=== PATIENT | female | born 1985 | race African-American/Black ===

== ENCOUNTER 2018-03-28 11:23 | Observation (INO) ==
[2018-03-28] MEDS ORDERED: ASPIRIN 325 MG TABLET PO STA (12:27)
[2018-03-28] MEDS ORDERED: NITROGLYCERIN 2% OINT 1 INCH/GM PACK TOP STA (12:27)
[2018-03-28] MEDS ORDERED: ONDANSETRON 4 MG/2 ML VIAL IV PRN (12:27)
[2018-03-28 12:48] LABS: Basophils % 0.4 % (0.0-0.8); Eosinophils % 0.6 % (0.00-10.9); Hematocrit 34.1 VOL% (35.7-47.0); Hemoglobin 11.4 GM/DL (12.0-16.0); Immature Granulocytes % 0.2 %; Immature Granulocytes Absolute 0.01 #; Lymphocytes # 1.8 10*3/uL (1.4-4.0); Lymphocytes % 32.9 % (21.3-54.2); Mean Corpuscular HGB Conc 33.4 GM/DL (32-36); Mean Corpuscular Hemoglobin 28 PG (27-34); Mean Corpuscular Volume 84.2 FL (87-102); Mean Platelet Volume 9.8 FL (9.6-12.0); Monocytes # 0.3 10*3/uL (0.11-0.8); Monocytes % 6.2 % (1.7-12.7); Neutrophils # 3.2 10*3/uL (1.4-7.4); Neutrophils % 59.7 % (38.7-73.9); Platelet Count 325 T/CUMM (130-400); Red Blood Count 4.05 MC/CUMM (3.8-5.5); Red Cell Distribution Width 12.3 % (9.3-17.3); White Blood Count 5.3 T/CUMM (4-12)
[2018-03-28 13:13] LABS: Albumin 3.6 G/DL (3.4-5.0); Bilirubin,Total 0.4 MG/DL (0.2-1.0); Calcium 8.8 MG/DL (8.5-10.1); Osmolality,Calculated 281.4 MOS/KG (273-304); Potassium 3.9 MMOL/L (3.5-5.1); Total Protein 7.5 G/DL (6.4-8.3)
[2018-03-28] MEDS ORDERED: DEXTROSE 50% 25 GM/50 ML VIAL IV PRN (16:51)
[2018-03-28] MEDS ORDERED: ALUM/MAG/SIMETH/LIDO VISC 1:1 30 ML BOTTLE PO PRN (16:51)
[2018-03-28] MEDS ORDERED: GLUCAGON 1 MG VIAL IM PRN (16:51)
[2018-03-28] MEDS: SODIUM CHLORIDE 0.9% 1,000 ML IV SCH (17:31)
[2018-03-28] MEDS ORDERED: CYCLOBENZAPRINE 10 MG TABLET PO PRN (17:36)
[2018-03-28] MEDS ORDERED: ENOXAPARIN 40 MG/0.4 ML SYRINGE SUBCUT SCH (18:00)
[2018-03-28 18:31] LABS: Apearance,Urine CLEAR (Clear); Bilirubin,Urine Negative (Negative); Blood, Urine Negative (Negative); Glucose,Urine (UA) >=500 mg/dL (Negative); Ketones,Urine 20 mg/dL (Negative); Mucus,Urine Occasional /LPF (Occasional); Nitrite,Urine Negative (Negative); Protein,Urine Negative; RBC,Urine 1 /HPF (0-4); Squamous Epithelial Cell,Urine Occasional /HPF (0-10); Urine Color Straw (Yellow); Urine Urobilinogen < 2.0 EU/DL (0.2-1.0); WBC,Urine 2 /HPF (0-6)
[2018-03-28 18:37] LABS: Barbiturates Screen,Urine Negative (Negative); Benzodiazepines Screen,Urine Negative (Negative); Cannabinoid Screen,Urine Negative (Negative); Opiate Screen,Urine Negative (Negative); Phencyclidine Screen,Urine Negative (Negative)
[2018-03-28] MEDS: OXYBUTYNIN 5 MG TABLET PO SCH (20:43)
[2018-03-28] MEDS: INSULIN LISPRO 100 UNIT/ML SUBCUT SCH (20:43)
[2018-03-28] MEDS: ONDANSETRON 4 MG/2 ML VIAL IV PRN (20:44)
[2018-03-28] MEDS ORDERED: traZODone 50 MG TABLET PO SCH (21:00)
[2018-03-28] MEDS: MORPHINE 4 MG/1 ML VIAL IV PRN (21:04)
[2018-03-29] MEDS: MORPHINE 4 MG/1 ML VIAL IV PRN ×2 (02:18→08:14)
[2018-03-29] MEDS: SODIUM CHLORIDE 0.9% 1,000 ML IV SCH ×2 (02:18→10:42)
[2018-03-29 05:24] LABS: Basophils % 0.5 % (0.0-0.8); Eosinophils # 0.1 10*3/uL (0.0-0.87); Eosinophils % 2.8 % (0.00-10.9); Hematocrit 29.5 VOL% (35.7-47.0); Hemoglobin 9.7 GM/DL (12.0-16.0); Immature Granulocytes % 0.2 %; Immature Granulocytes Absolute 0.01 #; Lymphocytes # 2.1 10*3/uL (1.4-4.0); Lymphocytes % 47.8 % (21.3-54.2); Mean Corpuscular HGB Conc 32.9 GM/DL (32-36); Mean Corpuscular Hemoglobin 28 PG (27-34); Mean Corpuscular Volume 85.5 FL (87-102); Mean Platelet Volume 9.8 FL (9.6-12.0); Monocytes # 0.4 10*3/uL (0.11-0.8); Monocytes % 8.7 % (1.7-12.7); Neutrophils # 1.7 10*3/uL (1.4-7.4); Platelet Count 257 T/CUMM (130-400); Red Blood Count 3.45 MC/CUMM (3.8-5.5); Red Cell Distribution Width 12.5 % (9.3-17.3); White Blood Count 4.4 T/CUMM (4-12)
[2018-03-29 06:00] LABS: Calcium 7.9 MG/DL (8.5-10.1); Potassium 4.1 MMOL/L (3.5-5.1); Risk Ratio 2.12; Thyroid Stimulating Hormone 2.09 uIU/ml (0.358-3.74); VLDL CHOLESTEROL 10.8 MG/DL
[2018-03-29] MEDS: INSULIN LISPRO 100 UNIT/ML SUBCUT SCH ×2 (08:15→12:46)
[2018-03-29] MEDS: OXYBUTYNIN 5 MG TABLET PO SCH (08:16)
[2018-03-29] MEDS ORDERED: PANTOPRAZOLE 40 MG TABLET PO SCH (09:00)
[2018-03-29] MEDS ORDERED: SERTRALINE 50 MG TABLET PO SCH (09:00)
[2018-03-29] MEDS ORDERED: MAGNESIUM SULF RIDER 2 GM in PREMIX 1 EACH IV PRN (09:34)
[2018-03-29] MEDS ORDERED: MAGNESIUM SULF RIDER 4 GM in PREMIX 1 EACH IV PRN (09:34)
[2018-03-29] MEDS ORDERED: INSULIN ASPART PROTAMINE/ASPART 70/30 100 UNIT/ML SUBCUT SCH ×2 (10:00→18:00)
[2018-03-29] MEDS: ONDANSETRON 4 MG/2 ML VIAL IV PRN (12:50)
[2018-03-29 14:09] VITALS: BP 94/74
== END 2018-03-29 15:21 | disposition home or self-care (01) ==
LOC: N.ED 11:23 → N.EDINP 11:23 → N.5E 15:02
PROVIDERS: ADMIT Internal Medicine; ATTEND Internal Medicine

== ENCOUNTER 2020-04-13 05:35 | Observation (INO) ==
[2020-04-13 06:36] LABS: Basophils % 0.4 % (0.0-0.8); Eosinophils # 0.1 10*3/uL (0.0-0.87); Eosinophils % 1.5 % (0.00-10.9); Hematocrit 33.9 VOL% (35.7-47.0); Hemoglobin 11.2 GM/DL (12.0-16.0); Immature Granulocytes % 0.6 %; Immature Granulocytes Absolute 0.04 #; Lymphocytes % 14.4 % (21.3-54.2); Mean Corpuscular Volume 82.3 FL (87-102); Mean Platelet Volume 9.9 FL (9.6-12.0); Monocytes % 5.1 % (1.7-12.7); Platelet Count 305 T/CUMM (130-400); Red Blood Count 4.12 MC/CUMM (3.8-5.5); White Blood Count 7.2 T/CUMM (4-12)
[2020-04-13 06:52] LABS: Albumin 3.6 G/DL (3.4-5.0); Bilirubin,Total 0.6 MG/DL (0.2-1.0); Calcium 9.2 MG/DL (8.5-10.1); Osmolality,Calculated 294.8 MOS/KG (273-304); Total Protein 6.9 G/DL (6.4-8.3)
[2020-04-13] MEDS ORDERED: INSULIN REGULAR 100 UNIT/ML IV STA (06:55)
[2020-04-13] MEDS ORDERED: SODIUM CHLORIDE 0.9% 1,000 ML IV STA (06:56)
[2020-04-13 08:51] LABS: ABG HCO3 21.1 MMOL/L (20-26); ABG Oxygen Saturation 98.5 % (95-100); ABG PCO2 36.9 MM HG (35-48); ABG PH 7.361 (7.35-7.45); ABG TCO2 18.8 MMOL/L (23-27); Allen Test Positive
[2020-04-13] MEDS ORDERED: DEXTROSE 50% 25 GM/50 ML VIAL IV PRN (09:29)
[2020-04-13] MEDS ORDERED: hydrALAZINE 20 MG/1 ML VIAL IV PRN (09:29)
[2020-04-13] MEDS ORDERED: GLUCAGON 1 MG VIAL IM PRN (09:29)
[2020-04-13] MEDS ORDERED: DOCUSATE SODIUM 100 MG CAPSULE PO PRN (09:29)
[2020-04-13] MEDS ORDERED: SUMAtriptan 25 MG TABLET PO PRN (09:33)
[2020-04-13] MEDS ORDERED: KETOROLAC 30 MG/1 ML VIAL IV ONE (09:34)
[2020-04-13] MEDS: ENOXAPARIN 40 MG/0.4 ML SYRINGE SUBCUT SCH (09:42)
[2020-04-13 10:03] LABS: Risk Ratio 2.13; Thyroid Stimulating Hormone 0.889 uIU/ml (0.358-3.74); VLDL CHOLESTEROL 15.2 MG/DL
[2020-04-13] MEDS ORDERED: MAGNESIUM SULF RIDER 4 GM in PREMIX 1 EACH IV PRN (11:34)
[2020-04-13] MEDS ORDERED: MAGNESIUM SULF RIDER 2 GM in PREMIX 1 EACH IV PRN (11:34)
[2020-04-13] MEDS ORDERED: ALUM/MAG/SIMETH/LIDO VISC 1:1 30 ML BOTTLE PO ONE (11:37)
[2020-04-13] MEDS: SODIUM CHLORIDE 0.9% 1,000 ML IV SCH (12:00)
[2020-04-13] MEDS: INSULIN REGULAR 100 UNIT/ML SUBCUT SCH ×3 (12:09→20:31)
[2020-04-13] MEDS: ONDANSETRON 4 MG/2 ML VIAL IV PRN ×2 (14:13→20:32)
[2020-04-13] MEDS ORDERED: INSULIN ASPART PROTAMINE/ASPART 70/30 100 UNIT/ML SUBCUT ONE (14:45)
[2020-04-13] MEDS ORDERED: INSULIN ASPART PROTAMINE/ASPART 70/30 100 UNIT/ML SUBCUT SCH (17:00)
[2020-04-13 17:41] LABS: Calcium 8.6 MG/DL (8.5-10.1); Osmolality,Calculated 281.5 MOS/KG (273-304)
[2020-04-13] MEDS: OXYBUTYNIN 5 MG TABLET PO SCH (20:31)
[2020-04-13] MEDS ORDERED: INSULIN GLARGINE 100 UNIT/ML SUBCUT SCH (21:00)
[2020-04-13] MEDS ORDERED: traZODone 50 MG TABLET PO SCH (21:00)
[2020-04-14] MEDS: SODIUM CHLORIDE 0.9% 1,000 ML IV SCH ×2 (00:22→08:41)
[2020-04-14] MEDS ORDERED: ACETAMINOPHEN 325 MG TABLET PO PRN (02:02)
[2020-04-14] MEDS: INSULIN REGULAR 100 UNIT/ML SUBCUT SCH ×2 (05:10→08:40)
[2020-04-14 05:57] LABS: Basophils % 0.2 % (0.0-0.8); Eosinophils # 0.2 10*3/uL (0.0-0.87); Eosinophils % 2.8 % (0.00-10.9); Hematocrit 28.1 VOL% (35.7-47.0); Hemoglobin 9.4 GM/DL (12.0-16.0); Immature Granulocytes % 0.4 %; Immature Granulocytes Absolute 0.02 #; Lymphocytes # 2.3 10*3/uL (1.4-4.0); Lymphocytes % 42.6 % (21.3-54.2); Mean Corpuscular HGB Conc 33.5 GM/DL (32-36); Mean Corpuscular Volume 82.2 FL (87-102); Mean Platelet Volume 9.7 FL (9.6-12.0); Monocytes % 8.1 % (1.7-12.7); Neutrophils % 45.9 % (38.7-73.9); Platelet Count 271 T/CUMM (130-400); Red Blood Count 3.42 MC/CUMM (3.8-5.5); Red Cell Distribution Width 12.2 % (9.3-17.3); White Blood Count 5.3 T/CUMM (4-12)
[2020-04-14 05:58] LABS: Calcium 7.7 MG/DL (8.5-10.1); Osmolality,Calculated 282.8 MOS/KG (273-304)
[2020-04-14 07:53] VITALS: BP 102/58
[2020-04-14] MEDS: OXYBUTYNIN 5 MG TABLET PO SCH (08:40)
[2020-04-14] MEDS: ENOXAPARIN 40 MG/0.4 ML SYRINGE SUBCUT SCH (08:42)
[2020-04-14] MEDS ORDERED: GABAPENTIN 300 MG CAPSULE PO SCH (09:00)
[2020-04-14] MEDS ORDERED: PANTOPRAZOLE 40 MG TABLET PO SCH (09:00)
[2020-04-14] MEDS ORDERED: KETOROLAC 10 MG TABLET PO PRN (09:14)
== END 2020-04-14 11:11 | disposition home or self-care (01) ==
LOC: N.ED 05:35 → N.EDINP 05:35 → N.5E 10:47
PROVIDERS: ADMIT Internal Medicine; ATTEND Internal Medicine

== ENCOUNTER 2020-05-14 19:51 | Observation (INO) ==
[2020-05-14] MEDS ORDERED: SODIUM CHLORIDE 0.9% 1,000 ML IV STA ×2 (20:04→20:32)
[2020-05-14 20:31] LABS: Basophils % 0.7 % (0.0-0.8); Eosinophils # 0.2 10*3/uL (0.0-0.87); Hematocrit 33.2 VOL% (35.7-47.0); Hemoglobin 10.7 GM/DL (12.0-16.0); Immature Granulocytes % 0.2 %; Immature Granulocytes Absolute 0.01 #; Lymphocytes # 1.5 10*3/uL (1.4-4.0); Lymphocytes % 34.4 % (21.3-54.2); Mean Corpuscular HGB Conc 32.2 GM/DL (32-36); Mean Corpuscular Volume 85.3 FL (87-102); Mean Platelet Volume 9.9 FL (9.6-12.0); Monocytes % 5.9 % (1.7-12.7); Neutrophils % 53.8 % (38.7-73.9); Platelet Count 298 T/CUMM (130-400); Red Blood Count 3.89 MC/CUMM (3.8-5.5); Red Cell Distribution Width 12.4 % (9.3-17.3); White Blood Count 4.4 T/CUMM (4-12)
[2020-05-14 21:01] LABS: ABG Base Excess -1.8 MMOL/L (-2.5-2.5); ABG HCO3 22.2 MMOL/L (20-26); ABG PCO2 35.6 MM HG (35-48); ABG PH 7.412 (7.35-7.45); ABG PO2 147.8 MM HG (80-95); ABG TCO2 23.3 MMOL/L (23-27)
[2020-05-14 21:01] LABS: Alanine Aminotransferase 23 U/L (13-56); Albumin 3.5 G/DL (3.4-5.0); Alkaline Phosphatase 92 U/L (45-117); Aspartate Amino Transferase 24 U/L (0-37); Bilirubin,Total < 0.39 MG/DL (0.2-1.0); Blood Urea Nitrogen 6 MG/DL (7-18); Calcium 8.5 MG/DL (8.5-10.1); Estimated Glom Filtration Rate 69 ML/MIN; Osmolality,Calculated 289.6 MOS/KG (273-304); Total Protein 7.5 G/DL (6.4-8.3)
[2020-05-14 21:02] LABS: ABG Oxygen Saturation 98.9 % (95-100)
[2020-05-14 21:04] LABS: Glucose 880 MG/DL (74-106)
[2020-05-14] MEDS ORDERED: INSULIN REGULAR 100 UNIT/ML IV ONE ×2 (21:06→21:18)
[2020-05-14] MEDS ORDERED: GLUCAGON 1 MG VIAL IM PRN ×3 (22:40→22:46)
[2020-05-14] MEDS ORDERED: ONDANSETRON 4 MG/2 ML VIAL IV PRN (22:40)
[2020-05-14] MEDS ORDERED: DEXTROSE 50% 25 GM/50 ML VIAL IV PRN ×3 (22:40→22:46)
[2020-05-14] MEDS ORDERED: ACETAMINOPHEN 325 MG TABLET PO PRN (22:40)
[2020-05-14] MEDS ORDERED: traMADol 50 MG TABLET PO PRN (22:43)
[2020-05-14] MEDS ORDERED: INSULIN REGULAR 100 UNIT/ML SUBCUT STA (22:59)
[2020-05-14] MEDS ORDERED: SODIUM CHLORIDE 0.9% 1,000 ML IV SCH (23:00)
[2020-05-14 23:45] LABS: Bacteria,Urine Occasional /HPF (Few); Bilirubin,Urine Negative (Negative); Blood, Urine Negative (Negative); Glucose,Urine (UA) >=500 mg/dL (Negative); Ketones,Urine Negative (Negative); Nitrite,Urine Negative (Negative); Protein,Urine Negative; RBC,Urine 2 /HPF (0-4); Squamous Epithelial Cell,Urine Occasional /HPF (0-10); Urine Appearance CLEAR (Clear); Urine Color Colorless (Yellow); Urine Specific Gravity 1.027 (1.001-1.035); Urine Urobilinogen < 2.0 EU/DL (0.2-1.0); WBC,Urine <1 /HPF (0-6)
[2020-05-15] MEDS ORDERED: PNEUMOCOCCAL VACCINE (23 VALENT) 0.5 ML VIAL IM ONE (00:13)
[2020-05-15 06:08] LABS: Basophils % 0.4 % (0.0-0.8); Eosinophils # 0.3 10*3/uL (0.0-0.87); Eosinophils % 5.8 % (0.00-10.9); Hematocrit 28.1 VOL% (35.7-47.0); Hemoglobin 9.3 GM/DL (12.0-16.0); Lymphocytes # 2.4 10*3/uL (1.4-4.0); Lymphocytes % 48.8 % (21.3-54.2); Mean Corpuscular HGB Conc 33.1 GM/DL (32-36); Mean Corpuscular Volume 82.9 FL (87-102); Mean Platelet Volume 9.5 FL (9.6-12.0); Monocytes % 7.3 % (1.7-12.7); Neutrophils % 37.7 % (38.7-73.9); Platelet Count 257 T/CUMM (130-400); Red Blood Count 3.39 MC/CUMM (3.8-5.5); Red Cell Distribution Width 12.2 % (9.3-17.3); White Blood Count 4.8 T/CUMM (4-12)
[2020-05-15 06:44] LABS: Calcium 7.8 MG/DL (8.5-10.1); Osmolality,Calculated 280.4 MOS/KG (273-304)
[2020-05-15] MEDS ORDERED: INSULIN REGULAR 100 UNIT/ML SUBCUT SCH (07:30)
[2020-05-15] MEDS ORDERED: INSULIN LISPRO 100 UNIT/ML SUBCUT SCH ×3 (07:30→12:00)
[2020-05-15 07:51] VITALS: BP 105/56
[2020-05-15 08:50] LABS: Anisocytosis 1+; Band Neutrophils 1 % (0-10); Eosinophils 10 % (0-10); Lymphocytes 47 % (20-55); Macrocytosis 1+; Platelet Estimate Normal; Segmented Neutrophils 36 % (50-85); Total Cells Counted 100
[2020-05-15] MEDS ORDERED: GABAPENTIN 300 MG CAPSULE PO SCH (09:00)
[2020-05-15] MEDS ORDERED: OXYBUTYNIN 5 MG TABLET PO SCH (09:00)
[2020-05-15] MEDS ORDERED: PANTOPRAZOLE 40 MG TABLET PO SCH (09:00)
[2020-05-15] MEDS ORDERED: ENOXAPARIN 40 MG/0.4 ML SYRINGE SUBCUT SCH (09:00)
[2020-05-15] MEDS ORDERED: INSULIN GLARGINE 100 UNIT/ML SUBCUT SCH (12:00)
[2020-05-15] MEDS ORDERED: traZODone 50 MG TABLET PO SCH (21:00)
== END 2020-05-15 10:30 | disposition home or self-care (01) ==
LOC: N.EDINP 19:51 → N.ED 19:51 → N.5E 23:29
PROVIDERS: ADMIT Internal Medicine Geriatric Medicine; ATTEND Internal Medicine Geriatric Medicine

== ENCOUNTER 2022-02-21 22:00 | Inpatient (IN) ==
[2022-02-21] MEDS ORDERED: SODIUM CHLORIDE 0.9% 1,000 ML IV STA ×2 (22:25→23:36)
[2022-02-21 22:54] LABS: Basophils % 0.1 % (0.0-0.8); Eosinophils % 0.1 % (0.00-10.9); Hematocrit 41.9 VOL% (35.7-47.0); Immature Granulocytes % 0.5 %; Immature Granulocytes Absolute 0.04 #; Lymphocytes # 0.7 10*3/uL (1.4-4.0); Lymphocytes % 9.1 % (21.3-54.2); Mean Corpuscular Volume 90.1 FL (87-102); Mean Platelet Volume 9.4 FL (9.6-12.0); Monocytes # 0.3 10*3/uL (0.11-0.8); Neutrophils % 86.2 % (38.7-73.9); Platelet Count 340 T/CUMM (130-400); Red Blood Count 4.65 MC/CUMM (3.8-5.5); Red Cell Distribution Width 12.7 % (9.3-17.3); White Blood Count 7.5 T/CUMM (4-12)
[2022-02-21 23:16] LABS: Alanine Aminotransferase 45 U/L (13-56); Albumin 4.3 G/DL (3.4-5.0); Alkaline Phosphatase 124 U/L (45-117); Aspartate Amino Transferase 39 U/L (0-37); Bilirubin,Total < 0.39 MG/DL (0.20-1.00); Blood Urea Nitrogen 12 MG/DL (7-18); Calcium 9.7 MG/DL (8.5-10.1); Carbon Dioxide 12 MMOL/L (21-32); Chloride 97 MMOL/L (98-107); Osmolality,Calculated 279.1 MOS/KG (273-304); Potassium 5.4 MMOL/L (3.5-5.1); Sodium 128 MMOL/L (136-145); Total Protein 9.8 G/DL (6.4-8.2)
[2022-02-21 23:22] LABS: Glucose 517 MG/DL (74-106)
[2022-02-21] MEDS ORDERED: ONDANSETRON 4 MG/2 ML VIAL IV STA (23:26)
[2022-02-21] MEDS ORDERED: INSULIN REGULAR 100 UNIT/ML IV ONE (23:35)
[2022-02-21] MEDS ORDERED: PROMETHAZINE INJ 12.5 MG in SODIUM CHLORIDE 0.9% 50 ML IV STA (23:51)
[2022-02-21 23:52] LABS: Arterial Base Excess iSTAT -17 MMOL/L (-2.5-2.5); Arterial Bicarbonate iSTAT 10.5 MMOL/L (20-26); Arterial O2 Saturation iSTAT 97 % (95-100); Arterial PCO2 iSTAT 29 MM HG (35-48); Arterial PO2 iSTAT 115 MM HG (80-95); Arterial Total CO2 iSTAT 11 MMO/L (23-27); Arterial pH iSTAT 7.171 (7.35-7.45)
[2022-02-21] MEDS ORDERED: PROMETHAZINE 25 MG/1 ML VIAL ONE (23:54)
[2022-02-22] MEDS ORDERED: INSULIN REGULAR DRIP 100 ML IV PRN (00:14)
[2022-02-22 00:26] LABS: Protein,Urine Trace mg/dL (Negative); Urine Appearance Clear (Clear); Urine Color Yellow (Yellow); Urine Specific Gravity >= 1.030 (1.001-1.035); Urine pH 5.5 (4.5-8.0)
[2022-02-22 00:27] LABS: Bilirubin,Urine Negative (Negative); Blood, Urine Trace mg/dL (Negative); Glucose,Urine (UA) 500 mg/dL (Negative); Ketones,Urine >=160 mg/dL (Negative); Nitrite,Urine Negative (Negative); Urine Urobilinogen 0.2 eU/dL (<2.0)
[2022-02-22 00:28] LABS: Bacteria,Urine Occasional /HPF (Few); Hyaline Casts,Urine 1 /LPF (0-3); Mucus,Urine Occasional /LPF (Occasional); Squamous Epithelial Cell,Urine Occasional /HPF (0-10)
[2022-02-22 01:46] VITALS: BP 115/80
[2022-02-22] MEDS ORDERED: SODIUM CHLORIDE 0.9% 1,000 ML IV STA (02:10)
[2022-02-22] MEDS ORDERED: ALBUTEROL 2.5 MG/3 ML NEB RESP TX PRN (02:12)
[2022-02-22] MEDS ORDERED: SODIUM PHOSPHATE IV PRN (02:12)
[2022-02-22] MEDS ORDERED: SODIUM BICARB INJ 100 MEQ in STERILE WATER INJ 400 ML IV PRN (02:12)
[2022-02-22] MEDS ORDERED: SODIUM CHLORIDE 0.9% IV PRN (02:12)
[2022-02-22] MEDS ORDERED: MAGNESIUM SULF RIDER 4 GM/100 ML PREMIX IV PRN (02:13)
[2022-02-22] MEDS ORDERED: MORPHINE 2 MG/1 ML SYRINGE IV PRN (02:13)
[2022-02-22] MEDS ORDERED: POTASSIUM CHLORIDE RIDER 10 MEQ/100 ML PREMIX IV PRN (02:13)
[2022-02-22] MEDS ORDERED: DEXTROSE 10% 250 ML BAG IV PRN ×2 (02:17→02:18)
[2022-02-22] MEDS: FAMOTIDINE 20 MG/2 ML VIAL IV SCH ×2 (02:29→16:48)
[2022-02-22 03:03] LABS: Arterial Base Excess iSTAT -16 MMOL/L (-2.5-2.5); Arterial Bicarbonate iSTAT 11.4 MMOL/L (20-26); Arterial O2 Saturation iSTAT 97 % (95-100); Arterial PCO2 iSTAT 31 MM HG (35-48); Arterial PO2 iSTAT 116 MM HG (80-95); Arterial Total CO2 iSTAT 12 MMO/L (23-27); Arterial pH iSTAT 7.178 (7.35-7.45)
[2022-02-22 03:42] LABS: Bilirubin,Urine Negative (Negative); Blood, Urine Negative (Negative); Glucose,Urine (UA) 500 mg/dL (Negative); Ketones,Urine >=160 mg/dL (Negative); Nitrite,Urine Negative (Negative); Protein,Urine Negative (Negative); Urine Appearance Clear (Clear); Urine Color Yellow (Yellow); Urine Urobilinogen 0.2 eU/dL (<2.0); Urine pH 5.5 (4.5-8.0)
[2022-02-22 03:43] LABS: RBC,Urine 1 /HPF (0-4)
[2022-02-22 04:19] LABS: Basophils % 0.1 % (0.0-0.8); Hematocrit 34.5 VOL% (35.7-47.0); Immature Granulocytes % 0.4 %; Immature Granulocytes Absolute 0.03 #; Lymphocytes # 1.2 10*3/uL (1.4-4.0); Lymphocytes % 15.9 % (21.3-54.2); Mean Corpuscular HGB Conc 30.7 GM/DL (32-36); Mean Corpuscular Volume 90.1 FL (87-102); Mean Platelet Volume 9.2 FL (9.6-12.0); Monocytes # 0.8 10*3/uL (0.11-0.8); Monocytes % 9.8 % (1.7-12.7); Neutrophils % 73.8 % (38.7-73.9); Platelet Count 311 T/CUMM (130-400); Red Blood Count 3.83 MC/CUMM (3.8-5.5); Red Cell Distribution Width 12.7 % (9.3-17.3); White Blood Count 7.7 T/CUMM (4-12)
[2022-02-22 04:21] LABS: Hemoglobin 10.6 GM/DL (12.0-16.0)
[2022-02-22 04:29] LABS: Calcium 7.6 MG/DL (8.5-10.1); Osmolality,Calculated 281.7 MOS/KG (273-304); Potassium 4.8 MMOL/L (3.5-5.1)
[2022-02-22 04:43] LABS: Phosphorous 2.4 MG/DL (2.5-4.9)
[2022-02-22] MEDS ORDERED: DEXTROSE 5% NACL 0.45% 1,000 ML IV SCH (04:45)
[2022-02-22] MEDS: ONDANSETRON 4 MG/2 ML VIAL IV PRN ×3 (06:36→18:28)
[2022-02-22] MEDS: DEXTROSE 5% LACTATED RINGERS 1,000 ML IV SCH ×2 (07:50→16:48)
[2022-02-22] MEDS ORDERED: ERGOCALCIFEROL 50,000 UNIT CAPSULE PO SCH (08:00)
[2022-02-22] MEDS: MAGNESIUM SULF RIDER 2 GM/50 ML PREMIX IV PRN (09:44)
[2022-02-22 10:47] LABS: Calcium 7.9 MG/DL (8.5-10.1); Osmolality,Calculated 276.4 MOS/KG (273-304); Potassium 3.8 MMOL/L (3.5-5.1)
[2022-02-22 14:49] LABS: Calcium 7.9 MG/DL (8.5-10.1); Osmolality,Calculated 273.8 MOS/KG (273-304); Potassium 3.6 MMOL/L (3.5-5.1)
[2022-02-22 17:32] LABS: Calcium 7.9 MG/DL (8.5-10.1); Osmolality,Calculated 272.7 MOS/KG (273-304); Potassium 3.1 MMOL/L (3.5-5.1)
[2022-02-22] MEDS: POTASSIUM CHLORIDE 20 MEQ TABLET PO PRN ×2 (18:05→20:30)
[2022-02-22] MEDS ORDERED: SODIUM CHLORIDE 0.45% 1,000 ML IV SCH (19:30)
[2022-02-22] MEDS ORDERED: OXYBUTYNIN 5 MG TABLET PO SCH (21:00)
[2022-02-22] MEDS ORDERED: TOPIRAMATE 25 MG TABLET PO SCH (21:00)
[2022-02-22] MEDS ORDERED: INSULIN GLARGINE 100 UNIT/ML SUBCUT SCH (21:00)
[2022-02-23] MEDS: POTASSIUM CHLORIDE 20 MEQ TABLET PO PRN ×3 (00:01→06:01)
[2022-02-23] MEDS: ONDANSETRON 4 MG/2 ML VIAL IV PRN (00:01)
[2022-02-23] MEDS: DEXTROSE 5% LACTATED RINGERS 1,000 ML IV SCH ×2 (02:10→09:16)
[2022-02-23] MEDS: FAMOTIDINE 20 MG/2 ML VIAL IV SCH (03:06)
[2022-02-23 03:59] LABS: Basophils % 0.3 % (0.0-0.8); Eosinophils # 0.1 10*3/uL (0.0-0.87); Eosinophils % 2.8 % (0.00-10.9); Hemoglobin 10.4 GM/DL (12.0-16.0); Immature Granulocytes % 0.3 %; Immature Granulocytes Absolute 0.01 #; Lymphocytes # 1.1 10*3/uL (1.4-4.0); Lymphocytes % 26.5 % (21.3-54.2); Mean Corpuscular HGB Conc 32.5 GM/DL (32-36); Monocytes # 0.7 10*3/uL (0.11-0.8); Monocytes % 17.2 % (1.7-12.7); Neutrophils % 52.9 % (38.7-73.9); Platelet Count 267 T/CUMM (130-400); Red Blood Count 3.72 MC/CUMM (3.8-5.5); Red Cell Distribution Width 12.7 % (9.3-17.3)
[2022-02-23 04:21] LABS: Band Neutrophils 4 % (0-10); Eosinophils 2 % (0-10); Lymphocytes 30 % (20-55); Microcytosis Slight; Total Cells Counted 100
[2022-02-23 04:22] LABS: Ovalocytes Slight
[2022-02-23 05:10] LABS: Osmolality,Calculated 272.7 MOS/KG (273-304); Potassium 3.5 MMOL/L (3.5-5.1)
[2022-02-23] MEDS: MAGNESIUM SULF RIDER 2 GM/50 ML PREMIX IV PRN (05:50)
[2022-02-23] MEDS ORDERED: GLUCAGON 1 MG VIAL IM PRN (08:34)
[2022-02-23] MEDS ORDERED: INSULIN ASPART PROTAMINE/ASPART 70/30 100 UNIT/ML SUBCUT SCH (09:00)
[2022-02-23] MEDS ORDERED: PANTOPRAZOLE 40 MG TABLET PO SCH (09:00)
[2022-02-23] MEDS ORDERED: POLYETHYLENE GLYCOL POWDER 17 GM PACK PO SCH (10:00)
[2022-02-23] MEDS ORDERED: OSELTAMIVIR 75 MG CAPSULE PO SCH (11:00)
[2022-02-23] MEDS ORDERED: INSULIN LISPRO 100 UNIT/ML SUBCUT SCH (11:30)
[2022-02-23] MEDS ORDERED: PHENOL 1.4% THROAT SPRAY 177 ML BOTTLE PO PRN (12:02)
[2022-02-23] MEDS ORDERED: traZODone 50 MG TABLET PO SCH (21:00)
== END 2022-02-23 14:15 | disposition home or self-care (01) | DRG 638 ==
LOC: N.ED 22:00 → SUATTDRO 02-22 02:12 → N.EDINP 02-22 02:12 → N.ICU 02-22 02:30
PROVIDERS: ADMIT Internal Medicine; ATTEND Family Medicine